=== PATIENT | female | born 1975 | race Caucasian/White ===

== ENCOUNTER 2020-04-02 22:18 | Emergency (ER) | payer OTHER, SELFPAY ==
[~2020-04-02] VITALS: Ht 157.5 cm; Wt 63.5 kg
[2020-04-02 23:04] VITALS: Ht 157.5 cm; Wt 63.5 kg
[2020-04-02 23:57] LABS: BASOPHIL % 0.4 % (0-2); PLATELET COUNT 215 x10^3mcL (130-400)
[2020-04-03 00:01] LABS: RED CELL DISTRIBUTION WIDTH 17.3 % (11.5-14.5)
[2020-04-03 00:20] LABS: CALCIUM 9.3 mg/dL (8.5-10.1); CARBON DIOXIDE 22.9 mmol/L (21-32); CHLORIDE SERUM 101 mmol/L (98-107); CREATININE SERUM 0.7 mg/dL (0.6-1.0); GFR1 > 60 mL/min; GLUCOSE SERUM 103 mg/dL (74-106); POTASSIUM SERUM 3.5 mmol/L (3.5-5.1); SODIUM SERUM 137 mmol/L (136-145)
[2020-04-03 00:24] LABS: ALBUMIN 3.8 g/dL (3.4-5.0); ALKALINE PHOSPHATASE 38 U/L (46-116); ALT/SGPT 14 U/L (14-59); AST/SGOT 17 U/L (15-37); BILIRUBIN TOTAL 0.47 mg/dL (0.20-1.00)
[2020-04-03 00:29] LABS: TOTAL PROTEIN, SERUM 8.5 g/dL (6.4-8.2)
[2020-04-03 00:42] VITALS: BP 124/82
== END 2020-04-03 00:42 | disposition home or self-care (01) ==
LOC: ED 22:18
PROVIDERS: Emergency Medicine
DX: B34.9 Viral infection, unspecified (principal); D64.9 Anemia, unspecified; R42 Dizziness and giddiness; R50.9 Fever, unspecified
CPT/HCPCS: 87804; J7030; J8597; Q0092